=== PATIENT | female | born 2000 | race Caucasian/White ===

== ENCOUNTER 2019-05-12 12:46 | Emergency (ER) | payer SELFPAY ==
[~2019-05-12] VITALS: Ht 160 cm; Wt 66.2 kg
[2019-05-12 12:53] VITALS: Ht 160 cm; Wt 66.2 kg
[2019-05-12 14:14] VITALS: BP 125/78
== END 2019-05-12 14:14 | disposition home or self-care (01) ==
LOC: ED 12:46
DX: N39.0 Urinary tract infection, site not specified (principal)

== ENCOUNTER 2019-09-05 23:45 | Emergency (ER) | payer SELFPAY ==
[~2019-09-05] VITALS: Ht 160 cm; Wt 66.7 kg
[2019-09-05 23:53] VITALS: Ht 160 cm; Wt 66.7 kg
[2019-09-06 00:57] LABS: UA SPECIFIC GRAVITY 1.015 (1.005-1.035); microscopic required? YES; urine erythrocyte 3+ (NEGATIVE)
[2019-09-06 01:08] LABS: BASOPHIL % 0.4 % (0-2); PLATELET COUNT 212 x10^3mcL (130-400); RED CELL DISTRIBUTION WIDTH 12.8 % (11.5-14.5)
[2019-09-06 01:24] LABS: CALCIUM 8.6 mg/dL (8.5-10.1); CARBON DIOXIDE 30.4 mmol/L (21-32); CHLORIDE SERUM 100 mmol/L (98-107); CREATININE SERUM 0.9 mg/dL (0.6-1.0); GFR1 > 60 mL/min; GLUCOSE SERUM 98 mg/dL (74-106); POTASSIUM SERUM 3.6 mmol/L (3.5-5.1); SODIUM SERUM 139 mmol/L (136-145)
[2019-09-06 01:27] LABS: ALBUMIN 4.1 g/dL (3.4-5.0); ALKALINE PHOSPHATASE 64 U/L (46-116); ALT/SGPT 16 U/L (14-59); AST/SGOT 6 U/L (15-37); BILIRUBIN TOTAL 0.2 mg/dL (0.20-1.00); TOTAL PROTEIN, SERUM 7.8 g/dL (6.4-8.2)
[2019-09-06 01:28] LABS: T3 TOTAL 0.77 ng/mL
[2019-09-06 01:44] LABS: FREE T4 0.95 ng/dL (0.76-1.46); FREE THYROXINE INDEX 2.2 ug/dL (1.4-4.5); T4(THYROXINE) 7.2 ug/dL (4.7-13.3)
[2019-09-06 02:15] VITALS: BP 116/70
== END 2019-09-06 02:15 | disposition home or self-care (01) ==
LOC: ED 23:45
PROVIDERS: Specialist
DX: N39.0 Urinary tract infection, site not specified (principal)
CPT/HCPCS: 84439; 87491; 87591; J0696; J1885; J7030; J7060